=== PATIENT | female | born 1990 | race Two or more races ===

== ENCOUNTER 2024-11-06 10:50 | Outpatient (AMB) | payer MEDICAID, SELFPAY ==
[2024-11-06 11:14] VITALS: BP 123/75; PULSE 69; RESP 18; TEMP 36.2; O2SAT 99; BMI 27.1
--- NOTE | 2024-11-06 11:14 | AMB.GYNCLNOT ---
Vital Signs 11/06/24 11:14 Height 1.63 m Height Method Stated Weight 71.668 kg Weight Measurement Method Standing Scale BMI 27.1 BP 123/75 Blood Pressure Source Automatic Cuff Blood Pressure Location Left Upper Arm Position Sitting Respiration 18 Pulse 69 Pulse Source Monitor Temp 97.2 F Temp Source Oral Pulse Oximetry (%) 99 Oxygen Delivery Method Room Air Allergies/Home Meds Allergies & Medications Allergies NKA* Allergy (Uncoded 11/06/24 11:16) Medication Reconciliation No Known Home Medications 11/06/24 [History Confirmed 11/06/24] Intake Visit Data Collection New Patient or Established: New Patient (never been to [facility]) Reason for Visit:: annual exam Seen by Clinical Staff ONLY (RN/MA): No Event Crew Technician Required: No Do You Feel Safe at Home: Yes Authorities Contacted: N/A PCP or OBGYN visit in last 3 months: No Hx Now: No Are you currently on any form of Control: Yes Last menstrual period: 10/12/24 Pain Present Currently: No Pain Scale Used: Roberto-Mc/Numerical Pain scale:: 0 Smoking Status Smoking Status: Never smoker Hydrographer history Hydrographer History Menstrual regularity: regular Flow: normal Monthly: Yes Age at menarche: 14 Currently sexually active: Yes Questionnaires PHQ-9 PHQ-2 Over the last 2 weeks, how often have you been bothered by any of the following problems? 1. Little interest or pleasure in doing things: not at all 2. Feeling down, depressed, or hopeless: not at all Total score: 0 PHQ-9 3. Trouble falling or staying asleep, or sleeping too much: Not at all 4. Feeling tired or having little energy: Not at all 5. Poor appetite or overeating: Not at all 6. Feeling bad about yourself - or that you are a failure or have let yourself or your family down: Not at all 7. Trouble concentrating on things, such as reading the newspaper or watching television: Not at all 8. Moving or speaking so slowly that other people could have noticed? - Or the opposite - being so fidgety or restless that you have been moving around a lot more than usual: not at all 9. Thoughts that you would be better off or of hurting yourself in some way: Not at all Total score: 0 If you checked off any problems, how difficult have these problems made it for you to do your work, take care of things at home, or get along with other people?: not difficult at all Source: Developed by Drs. Luis Stewart, Lori Larry, Kolton Calhoun and colleagues, with an educational roxana from [employer]. 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 Patient had menarche at 14. Her last period October 12, 2024. Menses are every month x 5 days. Patient used Ortho Evra patch for control. She reports good compliance. No ACHES. Denies social habits. Denies surgery. Denies chronic illness. Patient denies any complaints of vaginitis or UNDERCOVER COP complaints today. Review of Systems Review of Systems Systems Reviewed: All systems reviewed, normal except as documented Exam Narrative Physical exam: both breast soft, non tender,no masses, abdomen soft, non tender, no masses, perineum clear, no lesions, vagina pink, + leukorrhea. uterus normal size and shape General Limitations: no limitations General Appearance: alert, in no apparent distress, comfortable, cooperative, healthy appearing, well developed and well groomed Head Head exam: atraumatic, normocephalic and normal inspection ENT ENT exam: Present normal exam, normal oropharynx and mucous membranes moist Resp Respiratory exam: Present normal lung sounds bilaterally Card Cardiovascular exam: Present regular rate, normal rhythm and normal heart sounds Abdominal Abdominal exam: Present soft and normal bowel sounds Speculum exam: Present normal speculum exam (no lesions, vagina pink, leukorrhea present, no CMT, uterus mobile, nontender, normal size and shape) Bimanual exam: Present normal bimanual exam Psych Psychiatric exam: Present normal affect and normal mood Assessment & Plan Diagnosis / Problem List (1) Encounter for Routine Gynecological Examination: (2) Encounter for screening for malignant neoplasm of cervix: Status: Acute (3) Encounter for screening for human papillomavirus (HPV): Status: Acute (4) Encounter for gynecological examination (general) (routine) without abnormal findings: Status: Acute Plan Pap today. Discussed self breast exam monthly. Discussed diet and exercise. Continue with a multivitamin. Reviewed Ortho Evra patch. Discussed side effects and effectiveness. And patient will call when refills are needed. Return to clinic as needed Office Procedures OB Clinic LOC & Office Proc's Nursing/Assessment Patient Status: Established Patient OB Clinic Nursing Assessment: BP Monitoring, Medication Reconciliation, Update PMH in EMR and Vital Signs OB Clinic Coordination of Care: Consent,records obtained, informed consent, Education Simp Pt/Fam, Lab and Imaging orders and Staff clarify orders Miscellaneous Interventions: Pelvic/Pap Smear Set up Established Patient Charge Established Patient Point Assignment: 110 Established Patient Point Charge: EP Level 3 (80-115) In Clinic Procedures Pap Smear: Yes IRRIGATION FLUME LAYER: Papsmear Pap Smear Procedure Chaparone in room during procedure?: No Pre-op diagnosis general: z12.4, z11.51 Post-op diagnosis procedure note: Same Papsmear completed: yes
== END 2024-11-06 11:47 | disposition home or self-care (01) ==
LOC: HODSOBC 10:50
PROVIDERS: Supervising Provider Advanced Practice Midwife; Visit Provider Advanced Practice Midwife
DX: Z01.419 Encounter for gynecological examination (general) (routine) without abnormal findings (principal); Z11.51 Encounter for screening for human papillomavirus (HPV)
CPT/HCPCS: 99213; Q0091; G0463

== ENCOUNTER 2025-03-16 13:32 | Outpatient (AMB) | payer MEDICAID, SELFPAY ==
[2025-03-16 13:44] VITALS: BP 133/87; PULSE 76; RESP 7; TEMP 36.9; O2SAT 98; BMI 28.5
--- NOTE | 2025-03-16 13:44 | OBCLNT_ITS ---
Vital Signs 03/16/25 13:44 Height 1.63 m Height Method Measured Weight 75.863 kg Weight Measurement Method Standing Scale BMI 28.5 BP 133/87 H Blood Pressure Source Automatic Cuff Blood Pressure Location Right Upper Arm Position Sitting Respiration 7 L Pulse 76 Pulse Source Monitor Temp 98.5 F Temp Source Temporal Artery Scan Pulse Oximetry (%) 98 Oxygen Delivery Method Room Air Allergies/Home Meds Allergies & Medications Allergies NKA* Allergy (Uncoded 03/16/25 13:44) Medication Reconciliation vits no.126-ferrous fum 28 mg iron-folic acid 800 mcg tablet (Classic ) tab PO 03/16/25 [History Confirmed 03/16/25] Intake Visit Data Collection New Patient or Established: Established Patient (seen at [facility] within 3 years) Reason for Visit:: OBI\PT Consent obtained for Telemed Visit: No Seen by Clinical Staff ONLY (RN/MA): No Financial Advisor Trainee Required: No Do You Feel Safe at Home: Yes Authorities Contacted: N/A PCP or OBGYN visit in last 3 months: No Hx Now: Yes Are you currently on any form of Control: No Last menstrual period: 01/28/25 Pain Present Currently: No Pain Scale Used: Roberto-Mc/Numerical Pain scale:: 0 Smoking Status Smoking Status: Never smoker Questionnaires Covid-19 Vaccine Questionnaire Has patient been vacinated for Covid-19 Have you been vacinated for Covid-19: Yes PHQ-9 PHQ-2 Over the last 2 weeks, how often have you been bothered by any of the following problems? 1. Little interest or pleasure in doing things: not at all PHQ-9 8. Moving or speaking so slowly that other people could have noticed? - Or the opposite - being so fidgety or restless that you have been moving around a lot more than usual: not at all Source: Developed by Drs. Luis Stewart, Lori Larry, Kolton Calhoun and colleagues, with an educational roxana from [employer]. Social History Living Situation History Lives With: Children Housing: House Tobacco History Smoking Status: Never smoker Alcohol History Alcohol Intake: Never Domestic Abuse History Do You Feel Safe at Home: Yes History of Present Illness HPI Narrative 35-year-old 3 para 2 for OBI. Last. January 28, 2025. Estimated due date November 04, 2025. Patient reports her periods are every month. She denies any leaking, cramping or leaking. Slight nausea other than that she is doing well. No allergies. Patient denies any existence of chronic illnesses. Denies social habits. Denies surgeries. She has no history of abnormal Paps. Her last Pap was 3 months ago and it was normal OB Initial Visit OB Flowsheet OB Flowsheet Initial Weight: Not Recorded Date -?-?-?-?-?-?-?-?-?-?-?-?- EGA Weight BP Alb Glu CTX Pres Fundal ht FHR Mov Dilation Station Effacement Hx Notes Visit Note 03/16/25 -?-?-?-?-?-?-?-?-?-?-?-?- 6w 5d 75.863 kg 133/87 absent unknown 6 35-year-old 3 para 2 for OBI. Patient's last. January 28, 2025. She tracks her dates. Reports regular menses. Her last. November 04, 2025. So she is 6 weeks and 5 today. Denies SAB complaint. Slight nausea. Happy about Schedule NT scan with MFM. OB panel today. Okay to take vitamins. Discussed SAB precautions. And increase fluids. And discussed danger signs. Return in 4 weeks OB to Menstrual History Menstrual reliability: definite Flow: normal Menstrual regularity: regular Monthly: Yes Age at menarche: 14 On control pills at conception: No OB History : 3 Para: 2 Hx # Pregnancies: 0 Hx Total # of Abortions (Spontaneous & Elective): 0 # of Living Children: 2 Infection History & Risk Evaluation History of STDs: none HIV risk evaluation: low risk Hepatitis B risk evaluation: low risk Patient or partner has history of Genital Herpes: No Genetic Screening & History Genetic Screening/Teratology Counseling - Includes patient, baby's father, or anyone in either family with: 1. Patient's age 35 years or older as of estimated date of delivery: Yes 2. Thalassemia (Kazakh, Urdu, Mediterranean, or Background); MCV less than 80: No 3. Neural Tube Defect (Meningomyelocele, Spina Bifida, or Anencephaly): No 4. Congenital Heart Defect: No 5. Down Syndrome: No 6. Jt-Sachs (Ashkenazi Hinduism, Cajun, Micronesian [place]): No 7. Elaine Disease (Ashkenazi Hinduism): No 8. Familial Dysautonomia (Ashkenazi Hinduism): No 9. Sickle Cell Disease or Trait (): No 10. Hemophilia or other blood disorders: No 11. Muscular Dystrophy: No 12. Cystic Fibrosis: No 13. Emmy's Chorea: No 14. Mental Retardation/Autism: No 15. Other inherited genetic or chromosomal disorder: No 16. Maternal Metabolic Disorder (EG,TYPE 1 Diabetes, PKU): No 17. Patient or baby's father had a child with defects not listed above: No 18. Recurrent loss or a stillbirth: No 19. Medications (including supplements, vitamins, herbs or otc drugs)/il licit/recreational drugs/alcohol since last menstrual period: No 20. Any other: No Infection History 1. Live with someone with TB or exposed to TB: No 2. Rash or viral illness since last menstrual period: No 3. Hepatitis B,C: No Other (see comments) Source: [employer] Review of Systems Review of Systems Systems Reviewed: All systems reviewed, normal except as documented Exam General Limitations: no limitations General Appearance: alert, in no apparent distress, comfortable, cooperative, healthy appearing, well developed and well groomed Head Head exam: atraumatic, normocephalic and normal inspection Neck Neck exam: Present normal inspection, full ROM and trachea midline Chest Chest inspection: Present normal inspection and symmetric chest wall rise Resp Respiratory exam: Present normal lung sounds bilaterally Card Cardiovascular exam: Present regular rate, normal rhythm and normal heart sounds Abdominal Abdominal exam: Present soft and normal bowel sounds Neuro Neurological exam: Present alert, oriented X3 and CN II-XII intact Psych Psychiatric exam: Present normal affect and normal mood Office Procedures OB Clinic LOC & Office Proc's Nursing/Assessment Patient Status: Established Patient OB Clinic Nursing Assessment: Medication Reconciliation, Update PMH in EMR and Vital Signs OB Clinic Coordination of Care: Complex Care and Chronic Disease 1-5, Consent,records obtained, informed consent and Lab and Imaging orders Special Needs: Heart tones Miscellaneous Interventions: Blood/Urine Collection Established Patient Charge Established Patient Point Assignment: 135 Established Patient Point Charge: EP Level 4 (120-155) Results Urine HCG Urine HCG Positive Last Edit by Brenda Campos MA on 03/16/25 13:55 Assessment & Plan Diagnosis / Problem List (1) Advanced maternal age (AMA) in : Status: Acute (2) Encounter for supervision of high risk in first trimester, antepartum: Status: Acute Plan Schedule NT scan with MFM. OB panel today. NIPT and screens next visit. Discussed comfort measures for nausea. Discussed SAB precautions. Return in 4 weeks OB check Additional Plan Follow Up: 4 Weeks (obc)
== END 2025-03-16 14:10 | disposition home or self-care (01) ==
LOC: HODSOBC 13:32
PROVIDERS: Supervising Provider Advanced Practice Midwife; Visit Provider Advanced Practice Midwife
DX: O09.521 Supervision of elderly multigravida, first trimester (principal); Z3A.01 Less than 8 weeks gestation of pregnancy
CPT/HCPCS: 99214; G0463

== ENCOUNTER 2025-04-08 11:18 | Emergency (ER) | payer MEDICAID, SELFPAY ==
[2025-04-08 11:52] VITALS: BP 128/76; PULSE 89; RESP 16; TEMP 37.1; O2SAT 97
--- NOTE | 2025-04-08 12:28 | EDNOTE_ITS ---
<Statement entered by Missy Alexander MD - 04/08/25 15:14> As co-signing physician, I was present and available for consult prn. I concur with the plan and care as documented by the midlevel provider. ED General RME/HPI General Chief complaint: Flu Like Symptoms Stated complaint: CONGESTED, COUGH, SOB, PREG 10WKS Time Seen by Provider: 04/08/25 12:10 Arrival date/time: 04/08/25 11:18 CC: Cough HPI patient is a G3, P2 at estimated 2-1/2 months with regular follow- up was had a persistent 1-1/2-week cough. All children have similar coughs. That have not responded to antibiotics. Patient states the cough is worse at nighttime. But this remains intermittent throughout the day. Patient denies fever shortness of breath or difficulty breathing. Patient is concerned because she has coughing episode where she becomes short of breath afterwards. Patient denies bloody urination vaginal discharge that is out of the ordinary, abdominal pain low back pain or vaginal bleeding patient is awake alert oriented has a mild dry cough that is intermittent. Patient states she was prescribed antibiotics for a false positive strep test 2 days ago and has not taken the antibiotics because she does not feel that this is a strep throat . Related Data Previous Rx's ?Medication ?Instructions ?Recorded vits no.126-ferrous fum 1 tab PO QDAY 90 days #90 tabs 03/22/25 28 mg iron-folic acid 800 mcg tablet (Classic ) cetirizine 10 mg capsule 10 mg PO QDAY PRN allergy sy mptoms 04/08/25 #10 caps Allergies Allergy/AdvReac Type Severity Reaction Status Date / Time No Known Allergies Allergy Verified 04/08/25 11:21 Review of Systems Review of Systems Narrative Review of Systems: GEN: No fever, no chills, no weight loss EYES: No discharge, no visual changes, no pain HEENT: No ear pain, no congestion, no sore throat PULM: No shortness of breath, + cough, no congestion CV: No chest pain, no dyspnea on exertion, no palpitations GI: No nausea, no vomiting, no diarrhea, no pain, no constipation : No frequency, no urgency, no dysuria MUSC/SKEL: No joint pain, no back pain SKIN: No rash PSYCH: No hallucinations, no depression HEME/LYMPH: No easy bleeding or bruising tendencies NEURO: No weakness, no headache Past Medical History Social History SMOKING STATUS: Never smoker ED Exam Narrative Physical exam: [General: Obese not in cot no acute distress Head normocephalic HEENT: Eyes pupils are PERRLA EOMs are intact mouth pink moist membranes uvula is midline swallow symmetrical. No peritonsillar edema, no exudative patches. No postnasal discharge. No nasal discharge. All of the subsystems of HEENT are within acceptable limits Neck is supple nontender Chest equal chest rise nontender to palpation Respiratory: Clear to auscultation no wheezes crackles or rubs CV: Rate rhythm is regular no murmurs rubs or clicks Abdomen is soft nontender no masses positive bowel sounds all 4 quadrants Back: No CVA tenderness no spinous process tenderness from cervical spine thoracic and lumbar spine Skin: Intact no petechiae rash induration ulceration or crepitus Extremities: Moving all extremity against resistance cap refill less than 2 seconds neurosensory intact Neuro: Awake alert oriented x3 Glascow coma 15 no focal deficits] Course Quality Measures none Vital Signs Vital signs: Vital Signs Temperature 98.7 F 04/08/25 11:52 Pulse Rate 89 04/08/25 11:52 Respiratory Rate 16 04/08/25 11:52 Blood Pressure 128/76 04/08/25 11:52 Pulse Oximetry (%) 97 04/08/25 11:52 Oxygen Delivery Method Room Air 04/08/25 11:52 Discharge Plan Plan Patient Disposition: HOME (Self Care) Prescriptions/Referrals Prescriptions/Med Rec: New cetirizine 10 mg capsule 10 mg PO QDAY PRN (Reason: allergy symptoms) Qty: 10 0RF No Action Classic 28 mg iron- 800 mcg tablet 1 tab PO QDAY 90 Days Qty: 90 8RF Referrals: Rod Shearer MD [Physician, Family Practice] - In 1 week Problem List Clinical Impression: Cough Patient/Caregiver Discharge Instructions Other Activity Instructions:: Take 1 Tums approximately 1 hour before you go to bed in addition to the medication prescribed if the cost persisted follow-up with your RN SHIFT MGR. Education Materials: ED Cough Chronic Uncertain Cause Adult Print Language: Korean Stand Alone Forms: Xiomara Award Info., Patient Portal Info Letter, Work/School Release PA/LOCOMOTIVE BOILERMAKER Supervising Physician PA/LOCOMOTIVE BOILERMAKER Supervising Physician: Kelby Kramer ENP [facility] Clinical Information Provided by patient Medical Records Reviewed [facility] Meds/Rx Considered, not Ordered None Labs/Rad/Tests considered, not Ordered None Chronic Illness/Social Conditions which may negatively complicate care or outcome(s)-explain: None or not applicable Lab Interpretation Labs: none Imaging Imaging interpretation: none Medication Administration(s) none Diagnosis Differential diagnosis: Cough, viral syndrome called strep pharyngitis Most likely dx, and/or detailed dx discussion: Cough Dispositon Disposition: Discharge Home
== END 2025-04-08 14:01 | disposition home or self-care (01) ==
LOC: SERX 12:44
PROVIDERS: Emergency Provider Emergency Medicine; PCP Family Medicine
DX: O26.891 Other specified pregnancy related conditions, first trimester (principal); Z3A.10 10 weeks gestation of pregnancy; R05.9 Cough, unspecified
CPT/HCPCS: 99281

== ENCOUNTER 2025-04-11 11:18 | Outpatient (AMB) | payer MEDICAID, SELFPAY ==
--- NOTE | 2025-04-11 11:42 | OBCLNT_ITS ---
Vital Signs 04/11/25 11:43 Height 1.63 m Height Method Stated Weight 73.255 kg Weight Measurement Method Standing Scale BMI 27.6 BP 125/74 Blood Pressure Source Automatic Cuff Blood Pressure Location Left Upper Arm Position Sitting Respiration 16 Pulse 94 Pulse Source Monitor Temp 98.2 F Temp Source Oral Pulse Oximetry (%) 98 Oxygen Delivery Method Room Air Allergies/Home Meds Allergies & Medications Allergies No Known Allergies Allergy (Verified 04/11/25 11:43) Medication Reconciliation vits no.126-ferrous fum 28 mg iron-folic acid 800 mcg tablet (Classic ) 1 tab PO QDAY 90 days #90 tabs 03/22/25 [Rx Confirmed 04/11/25] cetirizine 10 mg capsule 10 mg PO QDAY PRN allergy symptoms #10 caps 04/08/25 [Rx Confirmed 04/11/25] Intake Visit Data Collection New Patient or Established: Established Patient (seen at [facility] within 3 years) Reason for Visit:: OBC Seen by Clinical Staff ONLY (RN/MA): No Electronic Gluing Machine Operator Required: No Do You Feel Safe at Home: Yes Authorities Contacted: N/A PCP or OBGYN visit in last 3 months: Yes Date of Last PCP or OBGYN visit: 04/08/25 Hx Now: Yes Are you currently on any form of Control: No Pain Present Currently: No Pain Scale Used: Roberto-Mc/Numerical Pain scale:: 0 Smoking Status Smoking Status: Never smoker Questionnaires Covid-19 Vaccine Questionnaire Has patient been vacinated for Covid-19 Have you been vacinated for Covid-19: Yes PHQ-9 PHQ-2 Over the last 2 weeks, how often have you been bothered by any of the following problems? 1. Little interest or pleasure in doing things: not at all 2. Feeling down, depressed, or hopeless: not at all Total score: 0 PHQ-9 3. Trouble falling or staying asleep, or sleeping too much: Not at all 4. Feeling tired or having little energy: Not at all 5. Poor appetite or overeating: Not at all 6. Feeling bad about yourself - or that you are a failure or have let yourself or your family down: Not at all 7. Trouble concentrating on things, such as reading the newspaper or watching television: Not at all 8. Moving or speaking so slowly that other people could have noticed? - Or the opposite - being so fidgety or restless that you have been moving around a lot more than usual: not at all 9. Thoughts that you would be better off or of hurting yourself in some way: Not at all Total score: 0 If you checked off any problems, how difficult have these problems made it for you to do your work, take care of things at home, or get along with other peo ple?: not difficult at all Source: Developed by Drs. Luis Stewart, Lori Larry, Kolton Calhoun and colleagues, with an educational roxana from [employer]. Depression screen completed yes Social History Living Situation History Marital Status: Single Lives With: Children Housing: House Tobacco History Smoking Status: Never smoker Second Hand Smoke Exposure: No Alcohol History Alcohol Intake: Never Domestic Abuse History Do You Feel Safe at Home: Yes Care OB Visit Log OB Flowsheet Initial Weight: Not Recorded Date -?-?-?-?-?-?-?-?-?-?-?-?- EGA Weight BP Alb Glu CTX Pres Fundal ht FHR Mov Dilation Station Effacement Hx Notes Visit Note 03/16/25 -?-?-?-?-?-?-?-?-?-?-?--?- 6w 5d 75.863 kg 133/87 absent unknown 6 35-year-old 3 para 2 for OBI. Patient's last. January 28, 2025. She tracks her dates. Reports regular menses. Her last. November 04, 2025. So she is 6 weeks and 5 today. Denies SAB complaint. Slight nausea. Happy about Schedule NT scan with M. OB panel today. Okay to take vitamins. Discussed SAB precautions. And increase fluids. And discussed danger signs. Return in 4 weeks OB to 04/11/25 -?-?-?-?-?-?-?-?-?-?-?-?- 10w 3d 73.255 kg 125/74 absent unknown 10 145 absent persistentent cough/congestion x 2 week. patient was seen in ER and sent home with Zytex, no relief. no SAB complaints. appt with [facility] for NT 04/30 Keep MFM appointment April 30 for NT scan. Patient advised to schedule appointment at [facility] for URI. Discussed comfort measures for cough and cold. Discussed danger signs symptoms and ER precautions. NIPT and carrier screens today. Return in 4 weeks OB check JEY Calculator Estimated Delivery Date Method Current WG Current Estimate 11/04/25 LMP (Certain) 10w 3d Notes Visit Date: 04/11/25 Last Updated by: Barbra Juarez CNM 04/11 OB panel: O+,abs-, rpr;;nr, rub imm, hbsag-, hiv-, HC-, gc/ct-, , A1: 5 Visit Date: 03/16/25 Last Updated by: Barbra Juarez CNM 35 yo . lmp 01/28/25. EDC: 11/04/25 Office Procedures OB Clinic LOC & Office Proc's Nursing/Assessment Patient Status: Established Patient OB Clinic Nursing Assessment: Medication Reconciliation, Update PMH in EMR and Vital Signs OB Clinic Coordination of Care: Education Complex Pt/Fam, Consent,records obtained, informed consent, Lab and Imaging orders, Results/Orders obtained and Staff clarify orders Special Needs: Heart tones Established Patient Charge Established Patient Point Assignment: 115 Established Patient Point Charge: EP Level 3 (80-115) Assessment & Plan Diagnosis / Problem List (1) Encounter for supervision of high risk in first trimester, antepartum: Status: Acute (2) Cough: Status: Acute Plan comfort measure for Cough/cold, follow up with PCP at [facility], increase fluid, MFM schedule 04/30/25, NIPT/carrier screen today, sab precaution. rtc 4 week Additional Plan Follow Up: 4 Weeks (obc)
[2025-04-11 11:43] VITALS: BP 125/74; PULSE 94; RESP 16; TEMP 36.8; O2SAT 98; BMI 27.6
== END 2025-04-11 11:56 | disposition home or self-care (01) ==
LOC: HODSOBC 11:18
PROVIDERS: PCP Family Medicine; Referring Provider Family Medicine; Supervising Provider Advanced Practice Midwife; Visit Provider Advanced Practice Midwife
DX: O09.891 Supervision of other high risk pregnancies, first trimester (principal); O99.891 Other specified diseases and conditions complicating pregnancy; R05.9 Cough, unspecified; Z3A.10 10 weeks gestation of pregnancy
CPT/HCPCS: 99213; G0463

== ENCOUNTER 2025-04-23 19:08 | Emergency (ER) | payer MEDICAID, SELFPAY ==
[2025-04-23 19:09] VITALS: BMI 28.1
[2025-04-23 19:36] VITALS: BP 100/66; PULSE 91; RESP 18; TEMP 37.4; O2SAT 98
--- NOTE | 2025-04-23 19:50 | EDNOTE_ITS ---
ED General RME/HPI General Chief complaint: Flu Like Symptoms Stated complaint: COUGH X1 MONTH, CHEST FEELS TIGHT Time Seen by Provider: 04/23/25 19:49 Arrival date/time: 04/23/25 19:08 CC: Cough, scratchy throat, coughing up white phlegm . HPI ongoing for 1 month seen here 2 weeks ago for the same complaint used cetirizine without success, seen by PCP put on amoxicillin without relief. He was given Robitussin by the [employer] for cough which also does not work . Patient is 12 weeks denies any vaginal bleeding vaginal discharge nausea or vomiting. Related Data Previous Rx's ?Medication ?Instructions ?Recorded vits no.126-ferrous fum 1 tab PO QDAY 90 days #90 tabs 03/22/25 28 mg iron-folic acid 800 mcg tablet (Classic ) cetirizine 10 mg capsule 10 mg PO QDAY PRN allergy sy mptoms 04/08/25 #10 caps loratadine 10 mg tablet 10 mg PO QDAY #14 tabs 04/23 Allergies Allergy/AdvReac Type Severity Reaction Status Date / Time No Known Allergies Allergy Verified 04/11/25 11:43 Review of Systems Review of Systems Narrative Review of Systems: GEN: No fever, no chills, no weight loss EYES: No discharge, no visual changes, no pain HEENT: No ear pain, no congestion, + sore throat PULM: No shortness of breath, + cough, no congestion CV: No chest pain, no dyspnea on exertion, no palpitations GI: No nausea, no vomiting, no diarrhea, no pain, no constipation : No frequency, no urgency, no dysuria MUSC/SKEL: No joint pain, no back pain SKIN: No rash PSYCH: No hallucinations, no depression HEME/LYMPH: No easy bleeding or bruising tendencies NEURO: No weakness, no headache ED Exam Narrative Physical exam: [General: Not in any acute distress Head normocephalic HEENT: Within acceptable limits Neck is supple nontender Chest equal chest rise nontender to palpation Respiratory: Clear to auscultation no wheezes crackles or rubs, occasional dry nonproductive cough CV: Rate rhythm is regular no murmurs rubs or clicks Abdomen is soft nontender no masses positive bowel sounds all 4 quadrants Back: No CVA tenderness no spinous process tenderness from cervical spine thoracic and lumbar spine Skin: Intact no petechiae rash induration ulceration or crepitus Extremities: Moving all extremity against resistance cap refill less than 2 seconds neurosensory intact Neuro: Awake alert oriented x3 Glascow coma 15 no focal deficits] Course Course Course Narrative: Patient has had 1 month of the symptoms and very stable vital signs including no fever no tachycardia and stable blood pressure. After single dose of antibiotics Robitussin and cetirizine she has had no relief I am highly suspicious this is viral in nature. Mostly patient will need for symptom relief Quality Measures none Vital Signs Vital signs: Vital Signs Temperature 99.3 F 04/23/25 19:36 Pulse Rate 91 04/23/25 19:36 Respiratory Rate 18 04/23/25 19:36 Blood Pressure 100/66 04/23/25 19:36 Pulse Oximetry (%) 98 04/23/25 19:36 Oxygen Delivery Method Room Air 04/23/25 19:36 Discharge Plan Plan Patient Disposition: HOME (Self Care) Patient condition on transfer: Stable Prescriptions/Referrals Prescriptions/Med Rec: New loratadine 10 mg tablet 10 mg PO QDAY Qty: 14 0RF No Action Classic 28 mg iron- 800 mcg tablet 1 tab PO QDAY 90 Days Qty: 90 8RF cetirizine 10 mg capsule 10 mg PO QDAY PRN (Reason: allergy symptoms) Qty: 10 0RF Problem List Clinical Impression: Cough, Congestion of throat Patient/Caregiver Discharge Instructions Education Materials: ED Cough Chronic Uncertain Cause Adult Additional Instructions: Try this medicine for decongestant if there is a worsening of symptoms you need to follow-up with your OB. Print Language: Greenlandic Stand Alone Forms: Xiomara Award Info., Patient Portal Info Letter, Work/School Release PA/CONCRETE MIXER OPERATOR Supervising Physician PA/CONCRETE MIXER OPERATOR Supervising Physician: Kelby calhoun ENP [facility] Clinical Information Provided by: patient Medical Records reviewed [facility] Meds/Rx considered, not ordered None Labs/Rad/Tests considered, not ordered None Chronic Illness/Social Conditions Explain: EKG EKG not done Labs Labs: none Imaging Imaging interpretation: none
== END 2025-04-23 20:35 | disposition home or self-care (01) ==
LOC: SERX 20:14
PROVIDERS: Emergency Provider Emergency Medicine
DX: R05.9 Cough, unspecified (principal); R09.89 Other specified symptoms and signs involving the circulatory and respiratory systems
CPT/HCPCS: 99281

== ENCOUNTER 2025-05-07 15:04 | Outpatient (AMB) | payer MEDICAID, SELFPAY ==
--- NOTE | 2025-05-07 15:11 | OBCLNT_ITS ---
Vital Signs 05/07/25 15:14 Height 1.63 m Height Method Stated Weight 73.652 kg Weight Measurement Method Standing Scale BMI 27.7 BP 130/81 Blood Pressure Source Automatic Cuff Blood Pressure Location Left Upper Arm Position Sitting Respiration 16 Pulse 80 Pulse Source Monitor Temp 97.2 F Temp Source Oral Pulse Oximetry (%) 99 Oxygen Delivery Method Room Air Allergies/Home Meds Allergies & Medications Allergies No Known Allergies Allergy (Verified 05/07/25 15:15) Medication Reconciliation vits no.126-ferrous fum 28 mg iron-folic acid 800 mcg tablet (Classic ) 1 tab PO QDAY 90 days #90 tabs 03/22/25 [Rx Confirmed 05/07/25] cetirizine 10 mg capsule 10 mg PO QDAY PRN allergy symptoms #10 caps 04/08/25 [Rx Confirmed 05/07/25] loratadine 10 mg tablet 10 mg PO QDAY #14 tabs 04/23/25 [Rx Confirmed 05/07/25] Intake Visit Data Collection New Patient or Established: Established Patient (seen at [facility] within 3 years) Reason for Visit:: OBC Seen by Clinical Staff ONLY (RN/MA): No Watershed Manager Required: No Do You Feel Safe at Home: Yes Authorities Contacted: N/A PCP or OBGYN visit in last 3 months: Yes Date of Last PCP or OBGYN visit: 04/23/25 Hx Now: Yes Are you currently on any form of Control: No Pain Present Currently: No Pain Scale Used: Roberto-Mc/Numerical Pain scale:: 0 Smoking Status Smoking Status: Never smoker Questionnaires Covid-19 Vaccine Questionnaire Has patient been vacinated for Covid-19 Have you been vacinated for Covid-19: No PHQ-9 PHQ-2 Over the last 2 weeks, how often have you been bothered by any of the following problems? 1. Little interest or pleasure in doing things: not at all 2. Feeling down, depressed, or hopeless: not at all Total score: 0 PHQ-9 3. Trouble falling or staying asleep, or sleeping too much: Not at all 4. Feeling tired or having little energy: Not at all 5. Poor appetite or overeating: Not at all 6. Feeling bad about yourself - or that you are a failure or have let yourself or your family down: Not at all 7. Trouble concentrating on things, such as reading the newspaper or watching television: Not at all 8. Moving or speaking so slowly that other people could have noticed? - Or the opposite - being so fidgety or restless that you have been moving around a lot more than usual: not at all 9. Thoughts that you would be better off or of hurting yourself in some way: Not at all Total score: 0 If you checked off any problems, how difficult have these problems made it for you to do your work, take care of things at home, or get along with other people?: not difficult at all Source: Developed by Drs. Luis Stewart, Lori Larry, Kolton Calhoun and colleagues, with an educational roxana from [employer]. Depression screen completed yes Social History Living Situation History Lives With: Children Housing: House Tobacco History Smoking Status: Never smoker Second Hand Smoke Exposure: No Alcohol History Alcohol Intake: Never Domestic Abuse History Do You Feel Safe at Home: Yes Care OB Visit Log OB Flowsheet Initial Weight: Not Recorded Date -?-?-?-?-?-?-?-?-?-?-?-?- EGA Weight BP Alb Glu CTX Pres Fundal ht FHR Mov Dilation Station Effacement Hx Notes Visit Note 03/16/25 -?-?-?-?-?-?-?-?-?-?-?-?- 6w 5d 75.863 kg 133/87 absent unknown 6 35-year-old 3 para 2 for OBI. Patient's last. January 28, 2025. She tracks her dates. Reports regular menses. Her last. November 04, 2025. So she is 6 weeks and 5 today. Denies SAB complaint. Slight nausea. Happy about Schedule NT scan with [facility]. OB panel today. Okay to take vitamins. Discussed SAB precautions. And increase fluids. And discussed danger signs. Return in 4 weeks OB to 04/11/25 -?-?-?-?-?-?-?-?-?-?-?-?- 10w 3d 73.255 kg 125/74 absent unknown 10 145 absent persistentent cough/congestion x 2 week. patient was seen in ER and sent home with Zytex, no relief. no SAB complaints. appt with [facility] for NT 04/30 Keep MFM appointment April 30 for NT scan. Patient advised to schedule appointment at [facility] for URI. Discussed comfort measures for cough and cold. Discussed danger signs symptoms and ER precautions. NIPT and carrier screens today. Return in 4 weeks OB check JEY Calculator Estimated Delivery Date Method Current WG Current Estimate 11/04/25 LMP (Certain) 14w 1d Notes Visit Date: 04/11/25 Last Updated by: Barbra Juarez CNM 04/11 OB panel: O+,abs-, rpr;;nr, rub imm, hbsag-, hiv-, HC-, gc/ct-, , A1: 5 Visit Date: 03/16/25 Last Updated by: Barbra Juarez CNM 35 yo . lmp 01/28/25. EDC: 11/04/25 Office Procedures OBC Clinic LOC & Office Proc's Nursing/Assessment Patient Status: Established Patient OB Clinic Nursing Assessment: Medication Reconciliation, Update PMH in EMR and Vital Signs OB Clinic Coordination of Care: Consent,records obtained, informed consent, Education Simp Pt/Fam, Lab and Imaging orders, Results/Orders obtained and Staff clarify orders Special Needs: Heart tones Established Patient Charge Established Patient Point Assignment: 110 Established Patient Point Charge: EP Level 3 (80-115) Assessment & Plan Diagnosis / Problem List (1) Encounter for supervision of high risk in second trimester, antepartum: Status: Acute Plan Discussed NIPT and carrier screens. Continue vitamins. Follow-up with MFM in June. Return in 4 weeks OB check and AFP
[2025-05-07 15:14] VITALS: BP 130/81; PULSE 80; RESP 16; TEMP 36.2; O2SAT 99; BMI 27.7
== END 2025-05-07 15:44 | disposition home or self-care (01) ==
LOC: HODSOBC 15:04
PROVIDERS: Supervising Provider Advanced Practice Midwife; Visit Provider Advanced Practice Midwife
DX: O09.522 Supervision of elderly multigravida, second trimester (principal); Z3A.14 14 weeks gestation of pregnancy
CPT/HCPCS: 99213; G0463

== ENCOUNTER 2025-06-04 14:23 | Outpatient (AMB) | payer MEDICAID, SELFPAY ==
--- NOTE | 2025-06-04 14:24 | AMB.OBVISIT ---
Vital Signs 06/04/25 14:25 Height 1.63 m Height Method Stated Weight 74.616 kg Weight Measurement Method Standing Scale BMI 28.0 BP 126/78 Blood Pressure Source Automatic Cuff Blood Pressure Location Left Upper Arm Position Sitting Respiration 16 Pulse 83 Pulse Source Monitor Temp 97.8 F Temp Source Oral Pulse Oximetry (%) 97 Oxygen Delivery Method Room Air Allergies/Home Meds Allergies & Medications Allergies No Known Allergies Allergy (Verified 06/04/25 14:46) Medication Reconciliation vits no.126-ferrous fum 28 mg iron-folic acid 800 mcg tablet (Classic ) 1 tab PO QDAY 90 days #90 tabs 03/22/25 [Rx Confirmed 06/04/25] cetirizine 10 mg capsule 10 mg PO QDAY PRN allergy symptoms #10 caps 04/08/25 [Rx Confirmed 06/04/25] loratadine 10 mg tablet 10 mg PO QDAY #14 tabs 04/23/25 [Rx Confirmed 06/04/25] Intake Visit Data Collection New Patient or Established: Established Patient (seen at [facility] within 3 years) Reason for Visit:: CARE Seen by Clinical Staff ONLY (RN/MA): No Travel Physical Therapist Required: No Do You Feel Safe at Home: Yes Authorities Contacted: N/A PCP or OBGYN visit in last 3 months: Yes Hx Now: Yes Are you currently on any form of Control: No Pain Present Currently: No Pain Scale Used: Roberto-Mc/Numerical Pain scale:: 0 Smoking Status Smoking Status: Never smoker Immunizations Flu Vaccine in the Last 12 Months: Yes Flu Vaccine Exclusion Criteria: Already Received Questionnaires Covid-19 Vaccine Questionnaire Has patient been vacinated for Covid-19 Have you been vacinated for Covid-19: Yes PHQ-9 PHQ-2 Over the last 2 weeks, how often have you been bothered by any of the following problems? 1. Little interest or pleasure in doing things: not at all 2. Feeling down, depressed, or hopeless: not at all Total score: 0 PHQ-9 3. Trouble falling or staying asleep, or sleeping too much: Not at all 4. Feeling tired or having little energy: Not at all 5. Poor appetite or overeating: Not at all 6. Feeling bad about yourself - or that you are a failure or have let yourself or your family down: Not at all 7. Trouble concentrating on things, such as reading the newspaper or watching television: Not at all 8. Moving or speaking so slowly that other people could have noticed? - Or the opposite - being so fidgety or restless that you have been moving around a lot more than usual: not at all 9. Thoughts that you would be better off or of hurting yourself in some way: Not at all Total score: 0 Source: Developed by Drs. Luis Stewart, Lori Larry, Kolton Calhoun and colleagues, with an educational roxana from [employer]. Depression screen completed yes Social History Living Situation History Lives With: Children Housing: House Tobacco History Smoking Status: Never smoker Second Hand Smoke Exposure: No Alcohol History Alcohol Intake: Never Domestic Abuse History Do You Feel Safe at Home: Yes Care OB Visit Log OB Flowsheet Initial Weight: Not Recorded Date <del>?</del> EGA Weight BP Alb Glu CTX Pres Fundal ht FHR Mov Dilation Station Effacement Hx Notes Visit Note 03/16/25 <del>?</del> 6w 5d 75.863 kg 133/87 absent unknown 6 35-year-old 3 para 2 for OBI. Patient's last. January 28, 2025. She tracks her dates. Reports regular menses. Her last. November 04, 2025. So she is 6 weeks and 5 today. Denies SAB complaint. Slight nausea. Happy about Schedule NT scan with MFM. OB panel today. Okay to take vitamins. Discussed SAB precautions. And increase fluids. And discussed danger signs. Return in 4 weeks OB to 04/11/25 <del>?</del> 10w 3d 73.255 kg 125/74 absent unknown 10 145 absent persistentent cough/congestion x 2 week. patient was seen in ER and sent home with Zytex, no relief. no SAB complaints. appt with MFM for NT 04/30 Keep MFM appointment April 30 for NT scan. Patient advised to schedule appointment at [facility] for URI. Discussed comfort measures for cough and cold. Discussed danger signs symptoms and ER precautions. NIPT and carrier screens today. Return in 4 weeks OB check 05/07/25 <del>?</del> 14w 1d 73.652 kg 130/81 absent unknown 14 145 absent Cough is improved. Feels better. Denies leaking or bleeding. No contractions. Sometimes light movement. Patient has a follow-up MFM appointment in June Keep appointment in June for maternal- medicine. aFP next visit. Continue vitamins. Reviewed carrier screens with patient. Increase fluids. Return in 4 weeks OB check 06/04/25 <del>?</del> 18w 1d 74.616 kg 126/78 absent unknown 18 145 absent Cough is improved. Patient unsure if she is feeling movement. Patient has an appointment in June for anatomy scan. No OB complaints today aFP today. Keep appointment for her growth and anatomy scan in June. And discussed labor precautions and return in 4 weeks OB check JEY Calculator Estimated Delivery Date Method Current WG Current Estimate 11/04/25 LMP (Certain) 18w 1d Other Estimates 11/04/25 Ultrasound #1 18w 1d 11/04/25 Manual 18w 1d final jey: 11/04/25 Notes Visit Date: 05/07/25 Last Updated by: Barbra Juarez CNM NIPT-, carrier screens - Visit Date: 04/11/25 Last Updated by: Barbra Juarez CNM 04/11 OB panel: O+,abs-, rpr;;nr, rub imm, hbsag-, hiv-, HC-, gc/ct-, 45, A1: 5 Visit Date: 03/16/25 Last Updated by: Barbra Juarez CNM 35 yo . lmp 01/28/25. EDC: 11/04/25 Office Procedures OBC Clinic LOC & Office Proc's Nursing/Assessment Patient Status: Established Patient OB Clinic Nursing Assessment: Medication Reconciliation, Update PMH in EMR and Vital Signs OB Clinic Coordination of Care: Complex Care and Chronic Disease 1-5, Consent,records obtained, informed consent, Education Simp Pt/Fam, 1 Ins Authorization, Lab and Imaging orders, Results/Orders obtained and Staff clarify orders Special Needs: Heart tones Established Patient Charge Established Patient Point Assignment: 150 Established Patient Point Charge: EP Level 4 (120-155) Assessment & Plan Diagnosis / Problem List (1) Encounter for supervision of high risk in second trimester, antepartum: Status: Acute Plan aFP today. Follow-up with maternal- medicine in June for anatomy scan. Discussed SAB precautions. Return in 4 weeks OB check Additional Plan Follow Up: 4 Weeks (obc)
[2025-06-04 14:25] VITALS: BP 126/78; PULSE 83; RESP 16; TEMP 36.6; O2SAT 97; BMI 28.0
== END 2025-06-04 15:21 | disposition home or self-care (01) ==
LOC: HODSOBC 14:23
PROVIDERS: Supervising Provider Advanced Practice Midwife; Visit Provider Advanced Practice Midwife
DX: O09.522 Supervision of elderly multigravida, second trimester (principal); Z3A.18 18 weeks gestation of pregnancy
CPT/HCPCS: 99214; G0463

== ENCOUNTER 2025-07-09 15:06 | Outpatient (AMB) | payer MEDICAID, SELFPAY ==
[2025-07-09 15:15] VITALS: BP 111/75; PULSE 84; RESP 18; TEMP 36.4; O2SAT 98; BMI 28.3
--- NOTE | 2025-07-09 15:15 | OBCLNT_ITS ---
Vital Signs 07/09/25 15:15 Height 1.63 m Height Method Stated Weight 75.296 kg Weight Measurement Method Standing Scale BMI 28.3 BP 111/75 Blood Pressure Source Automatic Cuff Blood Pressure Location Right Upper Arm Position Sitting Respiration 18 Pulse 84 Pulse Source Monitor Temp 97.5 F Temp Source Temporal Artery Scan Pulse Oximetry (%) 98 Oxygen Delivery Method Room Air Allergies/Home Meds Allergies & Medications Allergies No Known Allergies Allergy (Verified 07/09/25 15:16) Medication Reconciliation vits no.126-ferrous fum 28 mg iron-folic acid 800 mcg tablet (Classic ) 1 tab PO QDAY 90 days #90 tabs 03/22/25 [Rx Confirmed 07/09/25] cetirizine 10 mg capsule 10 mg PO QDAY PRN allergy symptoms #10 caps 04/08/25 [Rx Confirmed 07/09/25] loratadine 10 mg tablet 10 mg PO QDAY #14 tabs 04/23/25 [Rx Confirmed 07/09/25] Immunizations Immunizations Flu Vaccine in the Last 12 Months: No Flu Vaccine Exclusion Criteria: No Exclusion Criteria Care OB Visit Log OB Flowsheet Initial Weight: Not Recorded Date -?-?-?-?-?-?-?-?-?-?-?-?- EGA Weight BP Alb Glu CTX Pres Fundal ht FHR Mov Dilation Station Effacement Hx Notes Visit Note 03/16/25 -?-?-?-?-?-?-?-?-?-?-?-?- 6w 5d 75.863 kg 133/87 absent unknown 6 35-year-old 3 para 2 for OBI. Patient's last. January 28, 2025. She tracks her dates. Reports regular menses. Her last. November 04, 2025. So she is 6 weeks and 5 today. Denies SAB complaint. Slight nausea. Happy about Schedule NT scan with MFM. OB panel today. Okay to take vitamins. Discussed SAB precautions. And increase fluids. And discussed danger signs. Return in 4 weeks OB to 04/11/25 -?-?-?-?-?-?-?-?-?-?-?-?- 10w 3d 73.255 kg 125/74 absent unknown 10 145 absent persistentent cough/congestion x 2 week. patient was seen in ER and sent home with Elisabettishax, no relief. no SAB complaints. appt with MFM for NT 04/30 Keep MFM appointment April 30 for NT scan. Patient advised to schedule appointment at [facility] for URI. Discussed comfort measures for cough and cold. Discussed danger signs symptoms and ER precautions. NIPT and carrier screens today. Return in 4 weeks OB check 05/07/25 -?-?-?-?-?--?-?-?-?-?-?-?- 14w 1d 73.652 kg 130/81 absent unknown 14 145 absent Cough is improved. Feels better. Denies leaking or bleeding. No contractions. Sometimes light movement. Patient has a follow-up MFM appointment in June Keep appointment in June for maternal- medicine. aFP next visit. Continue vitamins. Reviewed carrier screens with patient. Increase fluids. Return in 4 weeks OB check 06/04/25 -?-?-?-?-?-?-?-?-?-?-?-?- 18w 1d 74.616 kg 126/78 absent unknown 18 145 absent Cough is improved. Patient unsure if she is feeling movement. Patient has an appointment in June for anatomy scan. No OB complaints today aFP today. Keep appointment for her growth and anatomy scan in June. And discussed labor precautions and return in 4 weeks OB check 07/09/25 -?-?-?-?-?-?-?-?-?-?-?-?- 23w 1d 75.296 kg 111/75 absent unknown 23 145 active Cough improved. Reports good movement. Denies labor precautions. Fetus active 3rd tri lab, ptl precaution. 3rd tri lab, ptl precaution. Patient has a follow-up maternal- medicine in August. Discussed labor precautions. Increase fluids. Continue prenatals. Return in 4 weeks OB check JEY Calculator Estimated Delivery Date Method Current WG Current Estimate 11/04/25 LMP (Certain) 23w 1d Other Estimates 11/04/25 Ultrasound #1 23w 1d 11/04/25 Ultrasound #2 23w 1d 11/04/25 Manual 23w 1d final jey: 11/04 Notes Visit Date: 07/09/25 Last Updated by: Barbra Juarez CNM AFP- Visit Date: 05/07/25 Last Updated by: Barbra Juarez CNM NIPT-, carrier screens - Visit Date: 04/11/25 Last Updated by: Barbra Juarez CNM 04/11 OB panel: O+,abs-, rpr;;nr, rub imm, hbsag-, hiv-, HC-, gc/ct-, , A1: 5 Visit Date: 03/16/25 Last Updated by: Barbra Juarez CNM 35 yo . lmp 01/28/25. EDC: 11/04/25 Office Procedures OBC Clinic LOC & Office Proc's Nursing/Assessment Patient Status: Established Patient OB Clinic Nursing Assessment: Medication Reconciliation, Update PMH in EMR and Vital Signs OB Clinic Coordination of Care: Complex Care and Chronic Disease 1-5, Education Complex Pt/Fam, Consent,records obtained, informed consent, Lab and Imaging orders, Results/Orders obtained and Staff clarify orders Special Needs: Heart tones Established Patient Charge Established Patient Point Assignment: 140 Established Patient Point Charge: EP Level 4 (120-155) Assessment & Plan Diagnosis / Problem List (1) Encounter for supervision of high risk in second trimester, antepartum: Status: Acute Plan Discussed labs and sono today. Ordered third trimester labs. Discussed labor precautions. Increase activity and diet and fluids. Return in 4 weeks OB check Additional Plan Follow Up: 4 Weeks (obc)
== END 2025-07-09 15:42 | disposition home or self-care (01) ==
LOC: HODSOBC 15:06
PROVIDERS: Supervising Provider Advanced Practice Midwife; Visit Provider Advanced Practice Midwife
DX: O09.522 Supervision of elderly multigravida, second trimester (principal); Z3A.23 23 weeks gestation of pregnancy
CPT/HCPCS: 99214; G0463